=== PATIENT | female | born 1990 | race Caucasian/White ===

== ENCOUNTER 2018-02-08 16:23 | Emergency (ER) | payer MEDICAID ==
[2018-02-08] MEDS: LEVALBUTEROL (NEB) 1.25 MG/0.5 ML AMP HHN (18:00)
[2018-02-08] MEDS: DEXAMETHASONE 10 MG/ML 1 ML INJ IM (19:25)
== END 2018-02-08 19:45 | disposition home or self-care (01) ==
LOC: FTE 16:23
DX: J20.9 Acute bronchitis, unspecified (principal)
CPT/HCPCS: 71045; 94664; 96372; 99284-25

== ENCOUNTER 2018-08-22 00:41 | Emergency (ER) | payer MEDICAID ==
[2018-08-22] MEDS: ALBUTEROL 0.083% (NEB) 2.5 MG/3 ML AMP NEB (03:54)
[2018-08-22] MEDS: IPRATROPIUM (NEB) 0.5 MG/2.5 ML AMP NEB (03:54)
== END 2018-08-22 05:34 | disposition home or self-care (01) ==
LOC: FTE 00:41
DX: J20.9 Acute bronchitis, unspecified (principal); R06.02 Shortness of breath
CPT/HCPCS: 71045; 93005; 94664; 99284-25